=== PATIENT | female | born 1960 | race Two or more races ===

== ENCOUNTER 2024-06-18 06:45 | Day surgery (SDC) | payer MEDICAID, SELFPAY ==
[2024-06-17 13:13] VITALS: BMI 21.7
[2024-06-18] VITALS (10 sets, daily range): BP systolic 95–151; BP diastolic 64–88; PULSE 69–87; RESP 12–19; TEMP 36.8–36.9; O2SAT 98–100; BMI 21.0
[2024-06-18] MEDS: SODIUM CHLORIDE 0.9% 500 ML 500 ML 100 ML IV (07:28)
[2024-06-18] MEDS: MIDAZOLAM INJ 1 MG/ML VIAL 2 ML (ASD USE ONLY) 2 MG IV (07:28)
[2024-06-18] MEDS: fentaNYL CIT INJ 50 mCg/ML AMP 2ML (ASD USE ONLY) IV (07:29)
[2024-06-18] MEDS: DiphenhydrAMINE INJ 50 MG/ML VIAL 25 MG IV (07:30)
== END 2024-06-18 08:30 | disposition home or self-care (01) ==
PROVIDERS: PCP Physician Assistant; Referring Provider Surgery; Visit Provider Surgery
PROC: 0DBE8ZX Excision of Large Intestine, Via Natural or Artificial Opening Endoscopic, Diagnostic (ICD-10-PCS; CPT 45380; principal; 2024-06-18 08:00)
DX: Z12.11 Encounter for screening for malignant neoplasm of colon (principal); K64.1 Second degree hemorrhoids; K57.30 Diverticulosis of large intestine without perforation or abscess without bleeding; E78.00 Pure hypercholesterolemia, unspecified; I10 Essential (primary) hypertension; Z90.49 Acquired absence of other specified parts of digestive tract; Z79.899 Other long term (current) drug therapy
CPT/HCPCS: 45378; J1200; J2250; J3010; J7040

== ENCOUNTER → 2024-08-12 | Outpatient (CLI) | payer MEDICAID, SELFPAY ==
--- NOTE | 2024-08-12 14:30 | XR_ITS ---
Examination: MRI abdomen with intravenous contrast. MRI abdomen without intravenous contrast. Date and time of exam: August 12, 2024 1459 hours Comparison September 05, 2023 INDICATIONS: History multiple liver masses including 19 mm anterior right lobe liver 24 mm 23 mm posterior right lobe of the liver Technique: Multiple axial, sagittal and coronal sections of the abdomen obtained. Transverse images, TR 6020, TE 107. T1 weighted transverse images, TR 582, TE 9.5. T2-weighted sagittal images, TR 4000, TE 105. T2-weighted sagittal images, TR 4000, TE 5. Coronal images, TR 4210, TE 107. Axial and coronal images are obtained post 10 cc intravenous injection, gadolinium. Findings: Precontrast images again note multiple liver lesions with increased signal on the T2-weighted images Images show diffuse and nodular enhancement of these lesions on the postcontrast study and appears stable in appearance No pancreatic mass No hydronephrosis Spleen not enlarged Abundant stool in the colon IMPRESSION: Findings most consistent with stable liver lesions compared to MR study September 05, 2023 I would still recommend a follow-up hepatic sonogram to compare with a 11/20/2023 exam
== END | disposition home or self-care (01) ==
PROVIDERS: PCP Physician Assistant; Referring Provider Physician Assistant; Visit Provider Physician Assistant
DX: K76.9 Liver disease, unspecified (principal)
CPT/HCPCS: 74183; A9579

== ENCOUNTER → 2024-12-22 | Outpatient (CLI) | payer MEDICAID, SELFPAY ==
--- NOTE | 2024-12-22 08:30 | XR_ITS ---
Examination: Screening digital mammography, bilateral Computer aided detection 3-D breast Tomosynthesis, bilateral Date and time of exam: December 22, 2024, 0814 hours, compared to mammograms dating to June 14, 2016 Indication: Screening Technique: Nonmagnified MLO, CC views of the breasts to been obtained, reconstructed from 3-D Tomosynthesis images. R2 computer aided detection program utilized for evaluation of suspicious masses and/or abnormal calcifications. 3-D Tomosynthesis images obtained. Findings: The breasts are heterogeneously dense, which may obscure small masses Skin lesions left breast. No interval suspicious masses Impression: BI-RADS category II: Benign Findings. Recommend 1 year follow-up mammogram.
== END | disposition home or self-care (01) ==
LOC: CDIM 07:58
PROVIDERS: Referring Provider Physician Assistant; Visit Provider Physician Assistant
DX: Z12.31 Encounter for screening mammogram for malignant neoplasm of breast (principal); R92.323 Mammographic fibroglandular density, bilateral breasts
CPT/HCPCS: 77063; 77067

== ENCOUNTER → 2025-02-15 | Outpatient (CLI) | payer MEDICAID, SELFPAY ==
--- NOTE | 2025-02-15 13:00 | XR_ITS ---
Examination: Abdomen sonogram, complete Date and time of exam: February 15, 2025, 1353 hours INDICATIONS: Right lobe liver lesions 2.1 cm, 1.6 cm, 2.5 cm on ultrasound 11/20/2023. Technique: Multiple real-time grayscale transabdominal sonographic images of the abdomen have been obtained. Findings: Absent gallbladder Common bile duct 11 mm no stones Pancreatic head 2.0 cm Aorta not enlarged Liver 15.0 cm Multiple liver lesions, 9 x 10 mm left lobe, 19 x 15 mm, 26 x 25 mm, 18 x 14 mm right lobe Patent IVC Right kidney 9.4 cm cortex 1.9 cm Left kidney 8.8 cm renal cortex 2.0 cm Upper pole left renal cyst 30 mm lower pole cyst 9 mm Spleen 8.6 cm IMPRESSION: Multiple liver lesions as above Recommend 1 additional MRI abdomen follow-up pre and postcontrast to compared with August 12, 2024 MRI study.
== END | disposition home or self-care (01) ==
LOC: CDIM 13:10
PROVIDERS: PCP Physician Assistant; Referring Provider Physician Assistant; Visit Provider Physician Assistant
DX: K76.9 Liver disease, unspecified (principal)
CPT/HCPCS: 76700